=== PATIENT | female | born 1990 ===

== ENCOUNTER 2023-02-03 05:30 | Inpatient (IN) | payer OTHER ==
[2023-02-03] MEDS ORDERED: PROMETHAZINE HCL 25 MG/1 ML VIAL IVPB ONE (06:30)
[2023-02-03] MEDS ORDERED: BUTORPHANOL TARTRATE 1 MG/ML VIAL IVPB ONE (06:30)
[2023-02-03] MEDS ORDERED: ELECTROLYTE-148 SOLN 1,000 ML IV SCH (06:30)
[2023-02-03 06:39] VITALS: BMI 26.4
[2023-02-03] MEDS ORDERED: PROMETHAZINE HCL 25 MG/1 ML VIAL ONE (07:08)
[2023-02-03] MEDS ORDERED: BUTORPHANOL TARTRATE 2 MG/ML VIAL ONE (07:08)
[2023-02-03 07:35] LABS: BASO % 0.2 % (0-2.0); EOS % 0.2 % (0-4.5); HEMATOCRIT 27.8 % (32.4-45.2); HEMOGLOBIN 9.2 GM/dL (10.7-15.3); LYMPH % 15.3 % (8-40); MCH 28.5 pg (25.7-33.7); MEAN CELL VOLUME 86.4 fl (80-96); MEAN PLT VOLUME 9.5 fl (7.5-11.1); MONO % 9.3 % (3.8-10.2); PLATELET COUNT 316 10^3/uL (134-434); RBC 3.22 M/mm3 (3.60-5.2); RDW 14.7 % (11.6-15.6); WHITE BLOOD COUNT 14.3 K/mm3 (4.0-10.0)
[2023-02-03] MEDS ORDERED: AMPICILLIN SODIUM 2 GM VIAL ONE (07:41)
[2023-02-03 08:02] LABS: CALCIUM 9.1 mg/dL (8.5-10.1)
[2023-02-03 08:03] LABS: BLOOD UREA NITROGEN 17.6 mg/dL (7-18)
[2023-02-03 08:06] LABS: CREATININE 0.8 mg/dL (0.55-1.3)
[2023-02-03] MEDS ORDERED: LIDOCAINE HCL 1% PRESERVATIVE FREE - 30ML VIAL ONE (08:17)
[2023-02-03] MEDS ORDERED: OXYTOCIN 20 UNITS in 0.9% NS 20 UNIT/1,000 ML INFUS.BAG IV ONE (08:17)
[2023-02-03 08:21] LABS: INR 1.23 (0.83-1.09); PROTHROMBIN TIME (PATIENT) 14.2 SEC (9.7-13.0)
[2023-02-03 08:24] LABS: ACTIVATED PTT 25.3 SECONDS (25.2-36.5)
[2023-02-03] MEDS ORDERED: DEXTROSE 5%-LACTATED RINGERS 1,000 ML IV SCH (08:30)
[2023-02-03] MEDS ORDERED: OXYTOCIN 30 UNITS in 0.9% NS 30 UNIT/500 ML INFUS.BAG IVPB SCH ×2 (08:30→08:45)
[2023-02-03] MEDS ORDERED: AMPICILLIN - 2 GM in SODIUM CHLORIDE 100 ML IVPB ONE (08:31)
[2023-02-03] MEDS ORDERED: OXYTOCIN 30 UNITS in 0.9% NS 30 UNIT/500 ML INFUS.BAG IVPB ONE (08:36)
[2023-02-03 09:17] LABS: HIV INTERPRETATION NEGATIVE (NEGATIVE)
[2023-02-03] MEDS ORDERED: oxyCODONE HCL 5 MG TABLET PO PRN (09:50)
[2023-02-03] MEDS ORDERED: BENZOCAINE 28 GM HEMORRHOIDAL OINTMENT TP PRN (09:50)
[2023-02-03] MEDS ORDERED: BISACODYL 10 MG SUPP.RECT RC PRN (09:50)
[2023-02-03] MEDS ORDERED: BENZOCAINE 20% 57 GM BOTTLE TP PRN (09:50)
[2023-02-03] MEDS ORDERED: ACETAMINOPHEN 325 MG TABLET (FP) PO PRN (09:50)
[2023-02-03] MEDS ORDERED: METHYLERGONOVINE MALEATE 0.2 MG/1 ML AMP IM PRN (09:50)
[2023-02-03] MEDS ORDERED: WITCH HAZEL 50% (TUCKS) 40 PAD/JAR PAD TP PRN (09:50)
[2023-02-03] MEDS ORDERED: OXYTOCIN 20 UNITS in 0.9% NS 20 UNIT/1,000 ML INFUS.BAG IV SCH (10:00)
[2023-02-03] MEDS: PRENATAL VITAMINS W/ FOLIC ACID TABLET (FP) PO SCH (12:00)
[2023-02-03] MEDS: IBUPROFEN 600 MG TABLET (FP) PO PRN ×2 (12:28→17:33)
[2023-02-03] MEDS: FERROUS SO4 325 MG TABLET (FP) PO SCH ×2 (12:28→17:33)
[2023-02-04 08:05] LABS: BASO % 0.3 % (0-2.0); EOS % 0.6 % (0-4.5); HEMATOCRIT 25.7 % (32.4-45.2); HEMOGLOBIN 8.1 GM/dL (10.7-15.3); LYMPH % 14.3 % (8-40); MCH 27.9 pg (25.7-33.7); MCHC 31.6 g/dl (32.0-36.0); MEAN CELL VOLUME 88.3 fl (80-96); MEAN PLT VOLUME 8.9 fl (7.5-11.1); MONO % 7.8 % (3.8-10.2); PLATELET COUNT 280 10^3/uL (134-434); RBC 2.91 M/mm3 (3.60-5.2); WHITE BLOOD COUNT 19.1 K/mm3 (4.0-10.0)
[2023-02-04] MEDS: FERROUS SO4 325 MG TABLET (FP) PO SCH ×3 (09:00→18:06)
[2023-02-04] MEDS: IBUPROFEN 600 MG TABLET (FP) PO PRN ×2 (09:02→20:20)
[2023-02-04] MEDS: PRENATAL VITAMINS W/ FOLIC ACID TABLET (FP) PO SCH (09:02)
[2023-02-04 10:16] VITALS: RESP 18
[2023-02-04] MEDS: AMPICILLIN - 1 GM in SODIUM CHLORIDE 100 ML IVPB SCH (19:44)
[2023-02-04] MEDS ORDERED: SENNOSIDES/DOCUSATE COMBO (SENNA PLUS) TABLET (UD) PO PRN (22:00)
[2023-02-05] MEDS: IBUPROFEN 600 MG TABLET (FP) PO PRN (08:19)
[2023-02-05] MEDS: FERROUS SO4 325 MG TABLET (FP) PO SCH (08:19)
[2023-02-05] MEDS: PRENATAL VITAMINS W/ FOLIC ACID TABLET (FP) PO SCH (10:03)
[2023-02-05 10:21] VITALS: BP 120/82; PULSE 90; TEMP 98.2
== END 2023-02-05 12:10 | disposition home or self-care (01) | DRG 560 ==
LOC: JDEL 05:30 → JLDR 06:23 → EDSTATUS 06:59 → J3W 11:30
PROVIDERS: ADMIT Obstetrics & Gynecology; ATTEND Obstetrics & Gynecology
PROC: 10E0XZZ Delivery of Products of Conception, External Approach (ICD-10-PCS; principal; 2023-02-03)
DX: O60.23X0 Term delivery with preterm labor, third trimester, not applicable or unspecified (principal); Z3A.36 36 weeks gestation of pregnancy; Z37.0 Single live birth
CPT/HCPCS: 36415; 80048; 85025; 85610; 85730; 86780; 86850; 86900; 86901; 87389; C9803-CS; U0003; U0005

== ENCOUNTER 2023-07-21 20:08 | Emergency (ER) | payer OTHER ==
[2023-07-21 20:15] VITALS: BP 118/73; PULSE 80; RESP 18; TEMP 98.3; BMI 25.8
[2023-07-21 22:02] LABS: BASO % 0.6 % (0-2.0); EOS % 2.5 % (0-4.5); HEMATOCRIT 35.4 % (32.4-45.2); HEMOGLOBIN 11.8 GM/dL (10.7-15.3); LYMPH % 35.5 % (8-40); MCH 30.9 pg (25.7-33.7); MCHC 33.4 g/dl (32.0-36.0); MEAN CELL VOLUME 92.5 fl (80-96); MEAN PLT VOLUME 9.1 fl (7.5-11.1); NEUT % 50.4 % (42.8-82.8); PLATELET COUNT 298 10^3/uL (134-434); RBC 3.82 M/mm3 (3.60-5.2); RDW 13.9 % (11.6-15.6); WHITE BLOOD COUNT 6.1 K/mm3 (4.0-10.0)
[2023-07-21 22:09] LABS: INR 1.49 (0.83-1.09); PROTHROMBIN TIME (PATIENT) 17.2 SEC (9.7-13.0)
[2023-07-21 22:11] LABS: ACTIVATED PTT 31.9 SECONDS (25.2-36.5)
[2023-07-21 22:18] LABS: POTASSIUM 3.8 mmol/L (3.5-5.1)
[2023-07-21 22:20] LABS: CALCIUM 8.7 mg/dL (8.5-10.1)
[2023-07-21 22:21] LABS: ALBUMIN 3.6 g/dl (3.4-5.0); BLOOD UREA NITROGEN 9.1 mg/dL (7-18)
[2023-07-21 22:24] LABS: CREATININE 0.8 mg/dL (0.55-1.3)
[2023-07-21 22:25] LABS: BILIRUBIN,TOTAL 0.3 mg/dL (0.2-1)
[2023-07-21 23:12] LABS: EPI CELLS >36 /uL (0-25.1); HYALINE CASTS 2 /uL (0-3.1); PH,URINE 7.5 (5.0-8.0); URINE APPEARANCE CLOUDY; URINE BILIRUBIN NEGATIVE (NEGATIVE); URINE COLOR YELLOW; URINE GLUCOSE (UA) NEGATIVE (NEGATIVE); URINE KETONE TRACE (NEGATIVE); URINE LEUK ESTERASE NEGATIVE (NEGATIVE); URINE NITRITE NEGATIVE (NEGATIVE); URINE PROTEIN TRACE (NEGATIVE); URINE RBC 7 /uL (0-23.9); URINE WBC 14 /uL (0-25.8)
[2023-07-21 23:13] LABS: URINE BACTERIA 788 /uL (0-1359)
== END 2023-07-21 23:26 | disposition home or self-care (01) ==
LOC: JER 20:08
DX: O20.0 Threatened abortion (principal); Z3A.09 9 weeks gestation of pregnancy
CPT/HCPCS: 36415; 76817-TC; 80053; 81003; 84702; 85025; 85610; 85730; 86850; 86900; 86901; 87086; 99284-25